=== PATIENT | female | born 1980 | race Caucasian/White ===

== ENCOUNTER 2016-09-22 16:04 | Emergency (ER) | payer OTHER ==
--- NOTE | 2016-09-22 18:21 | ED NURSING NOTES ---
Clinical Report - Nurses [facility] [address] [place] [address] 09/22/2016 16:05 Patient: MODESTA GODDARD TRIAGE Triage time 16:16. Acuity: LEVEL 3. Chief Complaint: BLOOD PRESSURE CHECK, DIZZINESS and WEAKNESS. Alert. No acute distress. ALEJANDRINA COMA SCORE: [place] Coma Scale: 15- eyes open spontaneously (4); best verbal response- oriented x 4 (5); best motor response- obeys commands (6). --16:27 Jessica Cadet R.N. 16:16 09/22/16. BP: 98/57. HR: 77. RR: 16. O2 saturation: 98%. Temp: 98.2 F. --16:27 Jessica Cadet R.N. Weight: 49.8 kg stated. Height/Length: 61 inches Per Patient. BMI: 20.8. --16:25 Jessica Cadet R.N. Medications Acyclovir Oral 200 mg, 3x a day. --16:20 Jessica Cadet R.N. Allergies Aspirin.(hives) Flu Shots. Definite Severe(nausea, vomiting) --16:20 Jesisca Cadet R.N. History Arrived by private vehicle. Historian: patient and family. Accompanied by family. Primary physician (alex). ( patient d/c from detox today, states BP has been low all week. Feels disoriented and has some feeling of bed spinning.). Treatment DIRECTOR ACUTE: (took 2 benedryl). PAST MEDICAL HX: Immunizations: up-to-date. Last normal menstrual period now- 3 days. SOCIAL HX: Current every day light tobacco smoker. History of drug use: heroin. (detoxed 5 days now). No alcohol use. No infectious disease exposure. ABUSE ASSESSMENT: No report of abuse. SELF HARM ASSESSMENT: A self harm assessment was performed. The patient answered "no" to the question "Do you have thoughts of harming or killing yourself?" and "Are you here because you tried to hurt yourself?". FALL RISK ASSESSMENT: Fall risk assessment completed. No fall risk identified. NUTRITIONAL RISK ASSESSMENT: The nutritional risk assessment revealed no deficiencies. FUNCTIONAL ASSESSMENT: Functional assessment: no impairments noted. LEARNING NEEDS ASSESSMENT: The learning needs assessment revealed no barriers. SKIN INTEGRITY ASSESSMENT: Skin integrity risk assessment completed. No skin integrity risk identified. --16:27 Jessica Cadet R.N. PROBLEMS: Myofascial Strain. Immunizations. Allergic Reaction. Pneumonia. Lifestyle / Substance Problems. Cough. Bronchospasm. Bronchitis. Impacted Cerumen. LNMP - Last Normal Menstrual Period. --16:21 Jessica Cadet R.N. ADDITIONAL SURGERIES: Appendectomy. Cholecystectomy. . --16:21 Jessica Cadet R.N. Interventions ID band on patient. To treatment room. --16:27 Jessica Cadet R.N. PHYSICAL ASSESSMENT Ambulatory to room. GENERAL / NEURO / PSYCH: Alert. Oriented X 4. She has had weakness. RESPIRATORY: Respirations not labored. The patient can speak in full sentences. --16:28 Jessica Cadet R.N. NURSING PROGRESS NOTES Patient gowned. Head of bed elevated. Reassurance given. Two patient identifiers checked. Call light placed in reach. Side rails up x 2. Bed placed in lowest position. Brakes of bed on. Patient ready for evaluation- chart flagged. ED physician notified. --16:29 Jessica Cadet R.N. 16:49 09/22/2016 Site #1 started via IV in the right antecubital space with an 20g angiocath, with aseptic technique and good blood return; one attempt. Blood drawn: rainbow set. Labeled in the presence of the patient and sent to the lab. Saline lock flushed with 5 mL saline. --16:49 Jessica Cadet R.N. 16:50 09/22/2016 Started bag #1 1000 mL IV Fluids IV NS (Saline); at 750 mL/hr via site #1. Allergies verified and confirmed 5 rights. IV patency established. IV site checked: no pain, redness, or swelling. IV flushed thoroughly pre- and post-medication administration. --16:50 Jessica Cadet R.N. 16:48 09/22/16. BP: 103/65 taken while standing. HR: 80. 16:43 09/22/16. BP: 98/63 taken while sitting. HR: 78. 16:43 09/22/16. BP: 91/59 taken while lying. HR: 81. 16:16 09/22/16. BP: 98/57. HR: 77. RR: 16. O2 saturation: 98%. Temp: 98.2 F. --17:25 Jessica Cadet R.N. 17:00 09/22/16. BP: 94/60. HR: 80. RR: 16. O2 saturation: 98%. --18:00 Jessica Cadet R.N. 17:30 09/22/16. BP: 99/63. HR: 75. RR: 18. O2 saturation: 97%. Pain level now: 0/10. --18:01 Jessica Cadet R.N. 17:58 09/22/2016 IV Fluids IV NS Discontinued: bag #1 infused upon arrival. Total amount infused: 1000 mL. IV patency established. IV site checked: no pain, redness, or swelling. IV flushed thoroughly. --18:03 Jessica Cadet R.N. 18:03 09/22/2016 Started bag #1 1000 mL IV Fluids IV NS (Saline); at 1000 mL/hr via site #1 --18:03 Jessica Cadet R.N. DISPOSITION / DISCHARGE 18:58 09/22/2016 Site #1 removed upon discharge. Catheter intact. Pressure dressing applied. --19:03 Jessica Cadet R.N. 18:58 09/22/2016 IV Fluids IV NS Discontinued: bag #2 infused upon discharge. Total amount infused: 1000 mL. IV patency established. IV site checked: no pain, redness, or swelling. IV flushed thoroughly. --19:03 Jessica Cadet R.N. Departure time: 19:02. Condition at departure: improved. No learning barriers present. Discharge instructions provided and reviewed with the patient. Patient verbalized understanding. Written instructions provided in Georgian. No activity restrictions. The patient was discharged home and accompanied by parent. She left the Emergency Department ambulatory and via private vehicle. Parent driving. FALL RISK ASSESSMENT: Fall risk assessment completed. No fall risk identified. --19:05 Jessica Cadet R.N. 19:00 09/22/16. BP: 95/61. HR: 78. RR: 18. O2 saturation: 97%. Temp: 98.1 F. Pain level now: 0/10. --19:05 Jessica Cadet R.N. Locked/Released at 09/22/2016 19:14 by Jessica Cadet R.N.
--- NOTE | 2016-09-22 18:21 | ED ORDER SUMMARY ---
..... 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 Worker (Continuous) (16:41 09/22/2016 HBivens A.R.N.P.) (Ack 16:48 LNations ER Tech1) (16:49 LAbe R.N.) CBC w Diff Urgent (16:41 09/22/2016 HBivens A.R.N.P.) (Ack 16:48 LNations ER Tech1) (16:48 LAbe R.N.) CMP Urgent (16:41 09/22/2016 HBivens A.R.N.P.) (Ack 16:48 LNations ER Tech1) (16:48 LAbe R.N.) Serum Qualitative Urgent (16:41 09/22/2016 HBivens A.R.N.P.) (Ack 16:48 LNations ER Tech1) (16:48 LAbe R.N.) Urine Drug Screen Urgent (17:08 09/22/2016 HBivens A.R.N.P.) (Ack 17:18 LNations ER Tech1) (17:26 LAbe R.N.) UA-Culture if indicated Urgent (17:08 09/22/2016 HBivens A.R.N.P.) (Ack 17:18 LNations ER Tech1) (17:30 LAbe R.N.) MEDICATION ORDERS: IV FLUIDS: IV NS : initial bolus 1000 mL (1000 mL/hr), then none - for X2 (NOW) (16:41 09/22/2016 HBivens A.R.N.P.) (16:50 LAbe R.N.) IV Saline Lock (16:41 09/22/2016 HBivens A.R.N.P.) (16:49 LAbe R.N.) ORDER SHEET NOTES: [Electronically signed by Jessica Cadet R.N. (19:14 09/22/2016)] [Electronically signed by Lucero Simpson (20:53 09/22/2016)] [Electronically locked/signed by Jessica Cadet R.N. (19:14 09/22/2016)]
--- NOTE | 2016-09-22 18:21 | ED CLINICAL REPORT ---
Clinical Report - Physicians/Mid Levels [facility] [address] [place] [address] 09/22/2016 16:05 Patient: MODESTA GODDARD Time Seen: 16:30; initial patient contact, initial documentation, patient care assumed. Arrived- By private vehicle. Historian- patient and family. HISTORY OF PRESENT ILLNESS Chief Complaint: BLOOD PRESSURE CHECK. This started about 1 weeks ago and is still present. Modifying factors- worsened by movement. Not relieved by anything. No loss of appetite, weight loss, headache, visual disturbance or fatigue. No muscle aches. She has had weakness. (dizzy, feels like room is spinning, says she got out of detox today, and has been feeling weak and dizzy all week while in there, her bp was low the entire time she was in there supposed to be at rehab facility in [facility]). Similar symptoms previously: None. Recent medical care: The patient was seen recently in a clinic. REVIEW OF SYSTEMS No fever, difficulty breathing, chest pain, vomiting or diarrhea. No blackouts. She has had difficulty with ambulation. It has been associated with weakness in both legs. All systems otherwise negative, except as recorded above. PAST HISTORY See nurses notes. PROBLEMS: Myofascial Strain. Immunizations. Allergic Reaction. Pneumonia. Lifestyle / Substance Problems. Cough. Bronchospasm. Bronchitis. Impacted Cerumen. LNMP - Last Normal Menstrual Period. --16:21 Jessica Cadet R.N. ADDITIONAL SURGERIES: Appendectomy. Cholecystectomy. . --16:21 Jessica Cadet R.N. SOCIAL HISTORY Light tobacco smoker. Occasional alcohol use. History of heavy IV drug use: heroin. Recently used drugs days ago. No recent travel. Is a local resident. FAMILY HISTORY Negative. ADDITIONAL NOTES The nursing notes have been reviewed with agreement regarding the chief complaint, HPI, ROS, PMH and patient medications and allergies. PHYSICAL EXAM Vital Signs: 09/22/2016 16:16 BP: 98/57. HR: 77. RR: 16. O2 saturation: 98%. Temp: 98.2 F. Have been reviewed as abnormal and appear to be correct. Hypotensive. Heart rate normal. Respiratory rate normal. Temperature normal. Oxygen saturation normal. Appearance: Alert. No acute distress. Eyes: Pupils equal, round and reactive to light. Eyes normal inspection. Neck: Normal inspection. Neck supple. CVS: Normal heart rate and rhythm. Heart sounds normal. Pulses normal. Respiratory: No respiratory distress. Breath sounds normal. Chest nontender. Abdomen: No visible injury. Soft and nontender. Skin: Skin warm and dry. Normal skin color. No rash. Normal skin turgor. Extremities: Extremities exhibit normal ROM. No lower extremity edema. Neuro: Oriented X 3. No motor deficit. No sensory deficit. LABS, X-RAYS, AND EKG Laboratory Tests: UA-Culture if indicated: (SHYANN: 09/22/2016 17:20) ( [facility] 09/22/2016 17:39) Final results Test Result Flag Units (Reference) URINE COLOR YELLOW URINE APPEARANCE CLEAR URINE GLUCOSE NEGATIVE (NEGATIVE) URINE BILIRUBIN NEGATIVE (NEGATIVE) URINE KETONE NEGATIVE (NEGATIVE) URINE SPECIFIC GRAVITY 1.010 (1.010-1.030) URINE PH 6.5 (5.0-8.0) URINE PROTEIN NEGATIVE (NEGATIVE) URINE UROBILINOGEN 0.2 EU/dL (0.2-1.0) URINE NITRITE NEGATIVE (NEGATIVE) URINE BLOOD 2+ (NEGATIVE) URINE LEUK ESTERASE TRACE (NEGATIVE) URINE RBC 0-1 rbc/hpf (0-1) URINE WBC 1-3 wbc/hpf (0-1) URINE EPITHELIAL CELLS 0-1 EPI/hpf (0-5) URINE BACTERIA MANY (4+) (NONE SEEN) URINE COMMENT CULTURE INDICATED URINE CULTURES ARE SET-UP BASED ON THE FOLLOWING CRITERIA:POSITIVE NITRITEPOSITIVE LEUKOCYTE ESTERASEGREATER THAN 10 WHITE BLOOD CELLSMODERATE (2+) OR GREATER BACTERIA Serum Qualitative: (SHYANN: 09/22/2016 16:40) ( [facility] 09/22/2016 17:11) Final results Test Result Flag Units (Reference) , SERUM NEGATIVE CBC w Diff: (SHYANN: 09/22/2016 16:40) ( [facility] 09/22/2016 17:07) Final results Test Result Flag Units (Reference) WHITE BLOOD COUNT 8.9 K/uL (4.5-11.5) RED BLOOD COUNT 4.34 M/uL (4.00-5.20) HEMOGLOBIN 13.1 gm/dL (12.0-16.0) HEMATOCRIT 38.8 % (36.0-46.0) MEAN CELL VOLUME 89 fL (80-100) MEAN CORPUSCULAR HGB 30 pg (26-34) MEAN CORPUSCULAR HGB CONC 34 g/dL (31-37) RED CELL DISTRIBUTION WIDTH 13.3 % (11.6-14.8) PLATELET COUNT 265 K/uL (150-400) NEUTROPHIL % 59.3 % (50-75) LYMPH % 29.2 % (25-40) MONO % 8.2 % (3-14) EOSINOPHIL % 2.8 % (0-4) BASOPHIL % 0.5 % (0-2) Urine Drug Screen: (SHYANN: 09/22/2016 17:20) ( [facility] 09/22/2016 17:46) Final results Test Result Flag Units (Reference) AMPHETAMINE/METHAMPHETAMINE NEGATIVE (NEGATIVE) BARBITURATE NEGATIVE (NEGATIVE) BENZODIAZEPINE POSITIVE H (NEGATIVE) CANNABINOID NEGATIVE (NEGATIVE) COCAINE NEGATIVE (NEGATIVE) ECSTASY NEGATIVE (NEGATIVE) METHADONE NEGATIVE (NEGATIVE) OPIATE NEGATIVE (NEGATIVE) The urine drug screen is a qualitative screening test fordrug overdose and abuse. All screen results should beconsidered as presumptive.Drugs screened for are as follows:BenzodiazepinesCocaineAmphetamines/MetamphetaminesTHC (Tetrahydrocannabinol)OpiatesBarbituratesEcstasyMethadonePositive results are unconfirmed. For confirmation, notifythe lab for the specimen to be sent to the reference lab.All confirmations must be performed by a differentmethodology.The ingestion of natural herbal and plant productscontaining Ephedra/Ephedra metabolites can produce in urineone or more substances capable of cross reacting withamphetamine/methamphetamine immunoassays. These testsprovide a preliminary result only. A more specificalternative chemical method must be used to obtain aconfirmed analytical result. CMP: (SHYANN: 09/22/2016 16:40) ( [facility] 09/22/2016 17:21) Final results Test Result Flag Units (Reference) GLUCOSE 84 mg/dL (70-110) BUN 15 mg/dL (7-18) CREATININE 0.7 mg/dL (0.6-1.3) Estimated GFR >60 mL/min Estimated GFR- >60 mL/min Note: Persistent reduction over 3 months in eGFR<60 mL/min/1.73 m2 defines CKD. Patients with eGFR values>=60 mL/min/1.73 m2 may also have CKD if evidence ofpersistent proteinuria. Additional information may be foundat www.kidney.org. SODIUM 140 mmol/L (136-145) POTASSIUM 4.6 mmol/L (3.5-5.1) CHLORIDE 106 mmol/L (98-107) CARBON DIOXIDE 30 mmol/L (21-32) CALCIUM 8.7 mg/dL (8.5-10.1) TOTAL PROTEIN 6.7 g/dL (6.4-8.2) ALBUMIN 3.5 g/dL (3.3-5.0) BILIRUBIN, TOTAL 0.1 mg/dL (0.0-1.0) ALKALINE PHOSPHATASE 49 U/L (46-116) AST (SGOT) 19 U/L (15-37) ALT (SGPT) 26 U/L (12-78) . PROGRESS AND PROCEDURES Course of Care: 17:09 09/22/16. nurse reporting Neg tilt on orthostatics, and stated her bp actually went up and heart rate stayed about the same. 09/22/2016 17:30 BP: 99/63. HR: 75. RR: 18. O2 saturation: 97%. Pain level now: 0/10. Vital Signs: have been reviewed as abnormal and appear to be correct. Hypotensive. Heart rate normal. Respiratory rate normal. Temperature normal. Patient counseled in person regarding the patient's stable condition, test results and diagnosis. 18:07. Differential Diagnosis: I considered labyrinthitis, drug-related etiology, benign positional vertigo, brainstem TIA, drug-related cause of central vertigo, anxiety, psychosis and metaphorical dizziness such as depression, chronic fatigue, etc as a possible cause of dizziness in this patient. This is a partial list of diagnoses considered. Other possible considerations: anemia, drug withdrawal, low thyroid. Above considerations are based on history, physical exam, reassessment and laboratory data. Differential diagnosis was discussed with patient. Disposition: Discharged home in good and improved condition (18:21). Condition: good and stable. CLINICAL IMPRESSION Acute urinary tract infection. No cystitis, pyelonephritis or hematuria. Not associated with indwelling catheter or obstruction. Acute dizziness INSTRUCTIONS (patient is medically cleared to check in for rehab). Warnings: GENERAL WARNINGS: Return or contact your physician immediately if your condition worsens or changes unexpectedly, if not improving as expected, or if other problems arise. Specifically return if problem worsens. Prescription Medications: Bactrim DS 800 mg / 160 mg: Take 1 tablet orally every 12 hours for 7 days. Dispense fourteen (14). No refills. Substitution is permissible. Follow-up: Follow up with your doctor in about three days even if well. Call for an appointment. Summary of care provided to patient. Understanding of the discharge instructions verbalized by patient. (Electronically signed by Lucero Simpson A.R.N.P. 09/22/2016 20:53)
--- NOTE | 2016-09-22 18:21 | ED ORDER SUMMARY ---
..... 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) (16:41 09/22/2016 HBivens A.R.N.P.) (Ack 16:48 LNations ER Tech1) (16:49 LAbe R.N.) CBC w Diff Urgent (16:41 09/22/2016 HBivens A.R.N.P.) (Ack 16:48 LNations ER Tech1) (16:48 LAbe R.N.) CMP Urgent (16:41 09/22/2016 HBivens A.R.N.P.) (Ack 16:48 LNations ER Tech1) (16:48 LAbe R.N.) Serum Qualitative Urgent (16:41 09/22/2016 HBivens A.R.N.P.) (Ack 16:48 LNations ER Tech1) (16:48 LAbe R.N.) Urine Drug Screen Urgent (17:08 09/22/2016 HBivens A.R.N.P.) (Ack 17:18 LNations ER Tech1) (17:26 LAbe R.N.) UA-Culture if indicated Urgent (17:08 09/22/2016 HBivens A.R.N.P.) (Ack 17:18 LNations ER Tech1) (17:30 LAbe R.N.) MEDICATION ORDERS: IV FLUIDS: IV NS : initial bolus 1000 mL (1000 mL/hr), then none - for X2 (NOW) (16:41 09/22/2016 HBivens A.R.N.P.) (16:50 LAbe R.N.) IV Saline Lock (16:41 09/22/2016 HBivens A.R.N.P.) (16:49 LAbe R.N.) ORDER SHEET NOTES: [Electronically signed by Jessica Cadet R.N. (19:14 09/22/2016)] [Electronically signed by Lucero Simpson (20:53 09/22/2016)] [Electronically locked/signed by Jessica Cadet R.N. (19:14 09/22/2016)]
--- NOTE | 2016-09-22 20:54 | ED MED RECONCILIATION SUMMARY ---
Patient: MODESTA GODDARD Medication Reconciliation Report [facility] VisitID: [id number] [place] [address] 35y, F Registration Date/Time: 09/22/2016 Weight: 49.8 kg Height/Length: 61 in. BMI: 20.8 ALLERGIES: Aspirin, Flu Shots The patient's Home Medications are listed below: THE FOLLOWING MEDICATIONS NEED TO BE RECONCILED: Acyclovir Oral 200 mg, 3x a day The source(s) of the original Home Medication information: Not obtained. The following Medications were given to the patient in the Emergency Department: IV NS IV Fluids bolus 0, then 750 mL/hr, administered: 09/22/2016 4:50:00 PM IV NS IV Fluids bolus 0, then 1000 mL/hr, administered: 09/22/2016 6:03:00 PM The following Medications were prescribed to the patient: Bactrim DS 800 mg / 160 mg: Take 1 tablet orally every 12 hours for 7 days. Dispense fourteen (14). No refills. Substitution is permissible. -- Lucero Simpson A.R.N.P.
--- NOTE | 2016-09-22 20:54 | ED MED RECONCILIATION SUMMARY ---
Patient: MODESTA GODDARD Medication Reconciliation Report [facility] VisitID: [id number] [place] [address] 35y, F Registration Date/Time: 09/22/2016 Weight: 49.8 kg Height/Length: 61 in. BMI: 20.8 ALLERGIES: Aspirin, Flu Shots The patient's Home Medications are listed below: THE FOLLOWING MEDICATIONS NEED TO BE RECONCILED: Acyclovir Oral 200 mg, 3x a day The source(s) of the original Home Medication information: Not obtained. The following Medications were given to the patient in the Emergency Department: IV NS IV Fluids bolus 0, then 750 mL/hr, administered: 09/22/2016 4:50:00 PM IV NS IV Fluids bolus 0, then 1000 mL/hr, administered: 09/22/2016 6:03:00 PM The following Medications were prescribed to the patient: Bactrim DS 800 mg / 160 mg: Take 1 tablet orally every 12 hours for 7 days. Dispense fourteen (14). No refills. Substitution is permissible. -- Lucero Simpson A.R.N.P.
--- NOTE | 2016-09-22 20:54 | ED DISCHARGE INSTRUCTIONS ---
Patient: MODESTA GODDARD General Instructions [facility] VisitID: [id number] [place] [address] 35y, F Registration Date/Time: 09/22/2016 Acute urinary tract infection. No cystitis, pyelonephritis or hematuria. Not associated with indwelling catheter or obstruction. Acute dizziness INSTRUCTIONS (patient is medically cleared to check in for rehab). Warnings: GENERAL WARNINGS: Return or contact your physician immediately if your condition worsens or changes unexpectedly, if not improving as expected, or if other problems arise. Specifically return if problem worsens. Prescription Medications: Bactrim DS 800 mg / 160 mg: Take 1 tablet orally every 12 hours for 7 days. Dispense fourteen (14). No refills. Substitution is permissible. Follow-up: Follow up with your doctor in about three days even if well. Call for an appointment. Summary of care provided to patient. Understanding of the discharge instructions verbalized by patient. ADDITIONAL INFORMATION Bladder Infection,Female (Adult) A bladder infection ("cystitis" or "UTI") usually causes a constant urge to urinate and a burning when passing urine. Urine may be cloudy, smelly or dark. There may be pain in the lower abdomen. A bladder infection occurs when bacteria from the vaginal area enter the bladder opening (urethra). This can occur from sexual intercourse, wearing tight clothing, dehydration and other factors. Home Care: Drink lots of fluids (at least 6-8 glasses a day, unless you must restrict fluids for other medical reasons). This will force the medicine into your urinary system and flush the bacteria out of your body. Avoid sexual intercourse until your symptoms are gone. Avoid caffeine, alcohol and spicy foods. These can irritate the bladder. A bladder infection is treated with antibiotics. You may also be given Pyridium (generic = phenazopyridine) to reduce the burning sensation. This medicine will cause your urine to become a bright orange color. The orange urine may stain clothing. You may wear a pad or panty-liner to protect clothing. Preventing Future Infections: Always wipe from front to back after a bowel movement. Keep the genital area clean and dry. Drink plenty of fluids each day to avoid dehydration. Both sexual partners should wash before intercourse. Urinate right after intercourse to flush out the bladder. Wear cotton underwear and cotton-lined panty hose; avoid tight-fitting pants. If you are on control pills and are having frequent bladder infections, discuss with your doctor. Follow Up: Return to this facility or see your doctor if ALL symptoms are not gone after three days of treatment. Get Prompt Medical Attention if any of the following occur: Fever of 100.4F (38C) or higher, or as directed by your healthcare provider No improvement by the third day of treatment Increasing back or abdominal pain Repeated vomiting; unable to keep medicine down Weakness, dizziness or fainting Vaginal discharge Pain, redness or swelling in the labia (outer vaginal area) Dizziness [Uncertain Cause] Dizziness is a common symptom sometimes described as "lightheadedness" or feeling like you are going to faint. If it lasts for only a few seconds and is related to changes in position (such as getting up after lying or sitting for a long time), it is usually not a sign of anything serious. Dizziness that lasts for minutes to hours, or comes on for no apparent reason, may be a sign of a more serious problem (such as dehydration, a medicine reaction, disease of the heart or brain). Today's exam did not show an exact cause for your dizzy spell . Sometimes additional tests are required before a cause can be found. Therefore, it is important to follow up with your doctor if your symptoms continue. Home Care: 1) If a dizzy spell occurs and lasts more than a few seconds, lie down until it passes. If you are lying down, then you cannot hurt yourself by falling if you do faint. 2) Do not drive or operate dangerous equipment until the dizzy spells have stopped for at least 48 hours. 3) If dizzy spells occur with sudden standing, this may be a sign of mild dehydration. Drink extra fluids over the next few days. 4) If you recently started a new medicine or if you had the dose of a current medicine increased (especially blood pressure medicine), talk with the prescribing doctor about your symptoms. Dose adjustments may be needed. Follow Up with your doctor for further evaluation within the next seven days, if your symptoms continue. Get Prompt Medical Attention if any of the following occur: -- Worsening of your symptoms -- Fainting, headache or seizure -- Repeated vomiting -- Feeling like you or the room is spinning -- Chest, arm, neck, back or jaw pain -- Palpitations (the sense that your heart is fluttering or beating fast or hard) -- Shortness of breath -- Blood in vomit or stool (black or red color) -- Weakness of an arm or leg or one side of the face -- Difficulty with speech or vision Benign Positional Vertigo The inner ear is located behind the middle ear. It is a part of the balance center of the body. It contains small calcium particles within fluid filled canals (semi-circular canals). These particles can move out of position as a result of aging, head trauma or disease of the inner ear. Once that happens, movement of the head into certain positions may cause the particles to stimulate the inner ear and create the feeling of vertigo. Vertigo is a false feeling of motion (as if you or the room is spinning). A vertigo attack may cause sudden nausea, vomiting and heavy sweating. Severe vertigo causes a loss of balance and may result in falling. During an attack of vertigo, head movement and body position changes will worsen symptoms. An episode of vertigo may last seconds, minutes or hours. Once you are over the first episode of vertigo, it may never return. Sometimes symptoms recur off and on over several weeks or longer. Home Care: If symptoms are severe, rest quietly in bed. Change positions slowly. There is usually one position that will feel best, such as lying on one side or lying on your back with your head slightly raised on pillows. Do not drive or work with dangerous machinery for one week after symptoms disappear, in case of a sudden return of symptoms. Take medicine as prescribed to relieve your symptoms. Unless another medicine was prescribed for nausea, vomiting and vertigo, you may use oldt-npi-oycggdy motion sickness pills, such as meclizine (Bonine, Bonamine, Antivert) or dimenhydrinate (Dramamine). Follow Up with your doctor or as directed by our staff. Report any persistent ringing in the ear or hearing loss to your doctor. [NOTE: If you had a CT or MRI scan, it will be reviewed by a specialist. You will be notified of any new findings that may affect your care.] Get Prompt Medical Attention if any of the following occur: Worsening of vertigo not controlled by the medicine prescribed Repeated vomiting not controlled by the medicine prescribed Increased weakness or fainting Severe headache or unusual drowsiness or confusion Weakness of an arm or leg or one side of the face Difficulty with speech or vision Seizure Sulfamethoxazole, Trimethoprim Oral tablet What is this medicine? SULFAMETHOXAZOLE; TRIMETHOPRIM or SMX-TMP (suhl fuh meth OK fabian zohl; trye METH oh prim) is a combination of a sulfonamide antibiotic and a second antibiotic, trimethoprim. It is used to treat or prevent certain kinds of bacterial infections. It will not work for colds, flu, or other viral infections. How should I use this medicine? Take this medicine by mouth with a full glass of water. Follow the directions on the prescription label. Take your medicine at regular intervals. Do not take it more often than directed. Do not skip doses or stop your medicine early. Talk to your garnett mechanic regarding the use of this medicine in children. Special care may be needed. This medicine has been used in children as young as 2 months of age. What side effects may I notice from receiving this medicine? Side effects that you should report to your doctor or health foster care worker as soon as possible: allergic reactions like skin rash or hives, swelling of the face, lips, or tongue breathing problems fever or chills, sore throat irregular heartbeat, chest pain joint or muscle pain pain or difficulty passing urine red pinpoint spots on skin redness, blistering, peeling or loosening of the skin, including inside the mouth unusual bleeding or bruising unusually weak or tired yellowing of the eyes or skin Side effects that usually do not require medical attention (report to your doctor or health foster care worker if they continue or are bothersome): diarrhea dizziness headache loss of appetite nausea, vomiting nervousness What may interact with this medicine? Do not take this medicine with any of the following medications: aminobenzoate potassium dofetilide metronidazole This medicine may also interact with the following medications: CARMEN inhibitors like benazepril, enalapril, lisinopril, and ramipril cyclosporine digoxin diuretics indomethacin medicines for diabetes methenamine methotrexate phenytoin potassium supplements pyrimethamine sulfinpyrazone tricyclic antidepressants warfarin What if I miss a dose? If you miss a dose, take it as soon as you can. If it is almost time for your next dose, take only that dose. Do not take double or extra doses. Where should I keep my medicine? Keep out of the reach of children. Store at room temperature between 20 to 25 degrees C (68 to 77 degrees F). Protect from light. Throw away any unused medicine after the expiration date. What should I tell my health care provider before I take this medicine? They need to know if you have any of these conditions: anemia asthma being treated with anticonvulsants if you frequently drink alcohol containing drinks kidney disease liver disease low level of folic acid or [id number] dehydrogenase poor nutrition or malabsorption porphyria severe allergies thyroid disorder an unusual or allergic reaction to sulfamethoxazole, trimethoprim, sulfa drugs, other medicines, foods, dyes, or preservatives or trying to get breast-feeding What should I watch for while using this medicine? Tell your doctor or health foster care worker if your symptoms do not improve. Drink several glasses of water a day to reduce the risk of kidney problems. Do not treat diarrhea with over the counter products. Contact your doctor if you have diarrhea that lasts more than 2 days or if it is severe and watery. This medicine can make you more sensitive to the sun. Keep out of the sun. If you cannot avoid being in the sun, wear protective clothing and use a sunscreen. Do not use sun lamps or tanning beds/booths. You have been given the following additional information: Bladder Infection, Female (Adult) Dizziness, Unk Cause Benign Positional Vertigo Sulfamethoxazole, Trimethoprim Oral tablet (Electronically signed by Lucero Simpson A.R.N.P. 09/22/2016 20:53)
--- NOTE | 2016-09-22 20:54 | ED MAR SUMMARY ---
..... Medication Administration Record [facility] [address] [place] [address] Patient: MODESTA GODDARD Visit ID: [id number] 35y, F Weight: 49.8 kg Height/Length: 61 in BMI: 20.8 ALLERGIES: Aspirin, Flu Shots Start 16:50 09/22/2016 Jessica Cadet R.N., Stop 17:58 09/22/2016 Jessica Cadet R.N. Medication Administered: IV NS (SALINE), Dose: IV Fluids, Rate: 750 mL/hr, Dispensed: 1000 mL bag, Site: #1 right AC. Medication Ordered: IV NS : initial bolus 1000 mL (1000 mL/hr), then none - for X2 (NOW). Start 18:03 09/22/2016 Jessica Cadet R.N., Stop 18:58 09/22/2016 Jessica Cadet R.N. Medication Administered: IV NS (SALINE), Dose: IV Fluids, Rate: 1000 mL/hr, Dispensed: 1000 mL bag, Site: #1 right AC. Medication Ordered: IV NS : initial bolus 1000 mL (1000 mL/hr), then none - for X2 (NOW).
--- NOTE | 2016-09-22 20:54 | ED MAR SUMMARY ---
..... Medication Administration Record [facility] [address] [place] [address] Patient: MODESTA GODDARD Visit ID: [id number] 35y, F Weight: 49.8 kg Height/Length: 61 in BMI: 20.8 ALLERGIES: Aspirin, Flu Shots Start 16:50 09/22/2016 Jessica Cadet R.N., Stop 17:58 09/22/2016 Jessica Cadet R.N. Medication Administered: IV NS (SALINE), Dose: IV Fluids, Rate: 750 mL/hr, Dispensed: 1000 mL bag, Site: #1 right AC. Medication Ordered: IV NS : initial bolus 1000 mL (1000 mL/hr), then none - for X2 (NOW). Start 18:03 09/22/2016 Jessica Cadet R.N., Stop 18:58 09/22/2016 Jessica Cadet R.N. Medication Administered: IV NS (SALINE), Dose: IV Fluids, Rate: 1000 mL/hr, Dispensed: 1000 mL bag, Site: #1 right AC. Medication Ordered: IV NS : initial bolus 1000 mL (1000 mL/hr), then none - for X2 (NOW).
== END 2016-09-22 19:02 | disposition home or self-care (01) ==
LOC: ED SRH 16:04
DX: R42 Dizziness and giddiness (principal); N39.0 Urinary tract infection, site not specified; F17.210 Nicotine dependence, cigarettes, uncomplicated; F11.20 Opioid dependence, uncomplicated; Z79.899 Other long term (current) drug therapy
CPT/HCPCS: 90004; 90074; 90100; 90148; 90469; 92760; 92761; 92762; 92763; 92764; 92765; 92766; 92767; 95059; 98428